=== PATIENT | male | born 1975 | race Caucasian/White ===

== ENCOUNTER 2018-02-03 20:40 | Emergency (ER) | payer OTHER ==
[~2018-02-03] VITALS: Ht 170.2 cm; Wt 89.8 kg
[2018-02-03] MEDS ORDERED: NKM (21:08)
[2018-02-03 21:16] VITALS: BP 129/79
[2018-02-03 21:23] VITALS: BP 129/79
[2018-02-03] MEDS ORDERED: AZITHROMYCIN250 MG ORAL (21:28)
[2018-02-03] MEDS ORDERED: BENADRYL25 MG ORAL (21:29)
--- NOTE | 2018-02-03 21:29 | Emergency Room Report ---
History of Present Illness General Chief Complaint: Medication Refill Source: Patient Present Illness HPI This is a 42-year-old male who was just released from [facility]. He has been coughing for 2 weeks and was treated with doxycycline and Augmentin. He had 5 day course of it. He was told that he needs a 10 day course so he still has 5 more days. But they did not write a prescription for him. He said coughing is better. Still productive sputum. No fever chills but no nausea no vomiting. Denies any other complaint. Allergies: Coded Allergies: PHENYTOIN (Verified Allergy, Unknown, 02/03/18) Patient History Past Medical History: see triage record, old chart reviewed Past Surgical History: other Pertinent Family History: none Social History: Reports: smoking Immunizations: other Reviewed Nursing Documentation: PMH: Agreed; PSxH: Agreed Nursing Documentation-PMH Hx Neurological Problems: Yes - hx of brain tumor and seizure Hx Seizures: Yes Review of Systems Eye: Denies: eye pain, blurred vision ENT: Denies: ear pain, nose congestion, throat swelling Respiratory: Reports: cough; Denies: shortness of breath Cardiovascular: Denies: chest pain, palpitations Gastrointestinal: Denies: abdominal pain, diarrhea, nausea, vomiting Musculoskeletal: Denies: back pain, joint pain Skin: Denies: rash Neurological: Denies: headache, numbness Endocrine: Denies: increased thirst, increased urine Hematologic/Lymphatic: Denies: easy bruising All Other Systems: negative except mentioned in HPI Physical Exam Vital Signs Date Time Temp Pulse Resp B/P (MAP) Pulse Ox O2 Delivery O2 Flow Rate FiO2 02/03/18 21:03 98.3 93 16 129/79 85 Room Air 98.2 vitals normal Sp02 EP Interpretation: reviewed, normal General Appearance: well appearing, no apparent distress, alert Head: normocephalic, atraumatic Eyes: bilateral eye PERRL, bilateral eye EOMI ENT: hearing grossly normal, normal pharynx Neck: full range of motion, supple, no meningismus Respiratory: chest non-tender, lungs clear, normal breath sounds Cardiovascular #1: regular rate, rhythm, no murmur Gastrointestinal: normal bowel sounds, non tender, no mass, no organomegaly, no bruit, non-distended Musculoskeletal: back normal, gait/station normal, normal range of motion Psychiatric: mood/affect normal Skin: warm/dry Medical Decision Making Diagnostic Impression: Primary Impression: Encounter for medication refill Additional Impression: URI (upper respiratory infection) Qualified Codes: J06.9 - Acute upper respiratory infection, unspecified ER Course Patient presents with upper respiratory infection and possible atypical pneumonia. Most likely viral in nature. Since she's been on 5 days of antibiotics, will have him finish the course. I will write for azithromycin since it's only one versus 2 antibiotics. We'll discharge home. No evidence of pneumonia, ACS, PE, dissection to name a few. Last Vital Signs Date Time Temp Pulse Resp B/P (MAP) Pulse Ox O2 Delivery O2 Flow Rate FiO2 02/03/18 21:03 98.3 93 16 129/79 85 Room Air 98.2 Status: unchanged Disposition: HOME, SELF-CARE Condition: Stable Scripts Diphenhydramine Hcl* (BENADRYL*) 25 Mg Capsule 50 MG ORAL Q6H PRN for Itching, #30 CAP Prov: DIANELYS KC M.D. 02/03/18 Azithromycin* (ZITHROMAX*) 250 Mg Tablet 250 MG ORAL DAILY, #6 TAB 0 Refills Take two tablets by mouth today, then take one tablet by mouth daily for four days Prov: DIANELYS KC M.D. 02/03/18 Patient Instructions: Medicine Refill at the Emergency Department Additional Instructions: follow-up with your doctor in 7 days. Return if worse. DIANELYS KC M.D. Feb 03, 2018 21:29
== END 2018-02-03 21:33 | disposition home or self-care (01) ==
LOC: EMR 21:28
DX: J06.9 Acute upper respiratory infection, unspecified (principal); F17.200 Nicotine dependence, unspecified, uncomplicated; G40.909 Epilepsy, unspecified, not intractable, without status epilepticus; Z88.8 Allergy status to other drugs, medicaments and biological substances
CPT/HCPCS: 99284

== ENCOUNTER 2018-07-19 00:37 | Emergency (ER) | payer OTHER ==
[~2018-07-19] VITALS: Ht 170.2 cm; Wt 95.3 kg
[~2018-07-19 00:37] MED LIST: AZITHROMYCIN250 MG ORAL; BENADRYL25 MG ORAL; NKM
[2018-07-19 01:20] VITALS: BP 138/80
[2018-07-19] MEDS ORDERED: IBUPROFEN600 MG ORAL (01:41)
[2018-07-19] MEDS ORDERED: BACTRIM DS TAB1 EAC1 ORAL (01:41)
--- NOTE | 2018-07-19 01:42 | Emergency Room Report ---
History of Present Illness General Chief Complaint: Skin Rash/Abscess Source: Patient Present Illness [facility] This is a 42-year-old male with a history of pilonidal abscess in the past. He presents with chief complaint of swelling to the rectal area for the last 2 days. Similar symptom in the past. Denies any fever or chills. Denies any nausea vomiting. Denies any drainage. Pain is 8 out of 10. Worse with sitting. Better with lying flat. Denies any other complaint. Allergies: Coded Allergies: PHENYTOIN (Verified Allergy, Unknown, 02/03/18) Patient History Past Medical History: see triage record, old chart reviewed Past Surgical History: none Pertinent Family History: none Social History: Denies: smoking Immunizations: other Reviewed Nursing Documentation: PMH: Agreed; PSxH: Agreed Nursing Documentation-PMH Hx Neurological Problems: Yes - hx of brain tumor and seizure Hx Seizures: Yes - none in 20x years Review of Systems Eye: Denies: eye pain, blurred vision ENT: Denies: ear pain, nose congestion, throat swelling Respiratory: Denies: cough, shortness of breath Cardiovascular: Denies: chest pain, palpitations Gastrointestinal: Denies: abdominal pain, diarrhea, nausea, vomiting Musculoskeletal: Denies: back pain, joint pain Skin: Denies: rash Neurological: Denies: headache, numbness Endocrine: Denies: increased thirst, increased urine Hematologic/Lymphatic: Denies: easy bruising All Other Systems: negative except mentioned in HPI Physical Exam Vital Signs Date Time Temp Pulse Resp B/P (MAP) Pulse Ox O2 Delivery O2 Flow Rate FiO2 07/19/18 00:49 98.4 89 16 131/81 95 Room Air 98.4 vitals normal Sp02 EP Interpretation: reviewed, normal General Appearance: well appearing, no apparent distress, alert Head: normocephalic, atraumatic Eyes: bilateral eye PERRL, bilateral eye EOMI ENT: hearing grossly normal, normal pharynx Neck: full range of motion, supple, no meningismus Respiratory: chest non-tender, lungs clear, normal breath sounds Cardiovascular #1: regular rate, rhythm, no murmur Gastrointestinal: normal bowel sounds, non tender, no mass, no organomegaly, no bruit, non-distended Rectal: other - Is a tender area and fluctuant area of 2 cm over the pilonidal area. No drainage. No redness. Musculoskeletal: back normal, gait/station normal, normal range of motion Psychiatric: mood/affect normal Skin: warm/dry Procedures Incision and Drainage Incision and Drainage : Consent: Verbal Site: pilonidal area Blade Size: 11 I & D Procedure: betadine prep, sterile drapes applied, sterile dressing applied, gauze wick placed Wound Location: back Anesthesia: 1% Lidocaine Volume Anesthetic (ccs): 3 Patient Tolerated: Well Complications: None Medical Decision Making Diagnostic Impression: Primary Impression: Pilonidal abscess ER Course Patient with a pilonidal abscess. No evidence of necrotizing fasciitis. We'll discharge home after I&D. Last Vital Signs Date Time Temp Pulse Resp B/P (MAP) Pulse Ox O2 Delivery O2 Flow Rate FiO2 07/19/18 00:49 98.4 89 16 131/81 95 Room Air 98.4 Status: improved Disposition: HOME, SELF-CARE Condition: Stable Scripts Ibuprofen* (MOTRIN*) 600 Mg Tablet 600 MG ORAL THREE TIMES A DAY, #30 TAB 0 Refills Prov: Hayder Sorto MD 07/19/18 Trimethoprim/Sulfamethoxazole 160/800* (BACTRIM DS TABLET*) 1 Each Tablet 1 TAB ORAL Q12H, #14 TAB 0 Refills Prov: Hayder Sorto MD 07/19/18 Patient Instructions: Abscess Additional Instructions: Follow-up in 2 days for wound check and packing removal. Return if worse. Hayder Sorto MD Jul 19, 2018 01:42
[2018-07-19] MEDS ORDERED: Bactrim-DS 1 tab ORAL ONE (01:45)
[2018-07-19 01:53] VITALS: BP 138/80
== END 2018-07-19 02:01 | disposition home or self-care (01) ==
LOC: EMR 01:16
DX: L05.01 Pilonidal cyst with abscess (principal); Z88.8 Allergy status to other drugs, medicaments and biological substances
CPT/HCPCS: 10060; 99283